=== PATIENT | female | born 1990 | race Caucasian/White ===

== ENCOUNTER 2020-06-10 15:15 | Emergency (ER) | payer SELFPAY ==
[2020-10-28] MEDS ORDERED: HYDROXYZINE 10M10 MG PO (16:04)
[2020-11-02] MEDS ORDERED: PERCOCET 5-3251 EACH PO (07:46)
[2020-11-02] MEDS ORDERED: NORCO 5-325 TA1 EACH PO (10:57)
[2020-11-02] MEDS ORDERED: ZOFRAN4 M1 PO (10:58)
== END 2020-06-10 17:17 | disposition home or self-care (01) ==
LOC: FER 15:15
DX: R22.0 Localized swelling, mass and lump, head (principal); Z53.8 Procedure and treatment not carried out for other reasons

== ENCOUNTER 2020-09-21 12:32 | Emergency (ER) | payer OTHER ==
[2020-09-21] MEDS ORDERED: NAPROXEN500 MG PO (13:42)
[2020-10-28] MEDS ORDERED: HYDROXYZINE 10M10 MG PO (16:04)
[2020-11-02] MEDS ORDERED: PERCOCET 5-3251 EACH PO (07:46)
[2020-11-02] MEDS ORDERED: NORCO 5-325 TA1 EACH PO (10:57)
[2020-11-02] MEDS ORDERED: ZOFRAN4 M1 PO (10:58)
== END 2020-09-21 14:10 | disposition home or self-care (01) ==
LOC: FER 12:32
DX: M25.561 Pain in right knee (principal)
CPT/HCPCS: 73564

== ENCOUNTER → 2020-11-02 | Day surgery (SDC) | payer OTHER ==
[~2020-11-02] VITALS: Ht 160 cm; Wt 86.2 kg
[~2020-11-02] MED LIST: HYDROXYZINE 10M10 MG PO; NAPROXEN500 MG PO; NORCO 5-325 TA1 EACH PO; PERCOCET 5-3251 EACH PO; ZOFRAN4 M1 PO
[2020-11-02 10:09] LABS: HCG (URINE) SCREEN NEGATIVE (NEGATIVE)
== END | disposition home or self-care (01) ==
LOC: FAS 09:06
PROVIDERS: Anesthesiology
DX: M23.41 Loose body in knee, right knee (principal); M17.11 Unilateral primary osteoarthritis, right knee; M25.861 Other specified joint disorders, right knee; M71.21 Synovial cyst of popliteal space [Baker], right knee; M25.461 Effusion, right knee; F41.9 Anxiety disorder, unspecified; Z88.0 Allergy status to penicillin; Z86.16 Personal history of COVID-19
CPT/HCPCS: 84703; 93005; J1100; J1170; J2250; J2405; J2704; J3010; J7120